=== PATIENT | female | born 1990 | race Caucasian/White ===

== ENCOUNTER 2018-09-30 21:19 | Emergency (ER) | payer MEDICAID ==
[2018-09-30] MEDS ORDERED: Amiodarone 150 MG/3 ML SDV ONE (21:30)
[2018-09-30] MEDS ORDERED: Naloxone 0.4 MG/ML SDV ONE (21:30)
[2018-09-30] MEDS ORDERED: Atropine 0.1 MG/ML 10 ML Syringe ONE (21:30)
[2018-09-30] MEDS ORDERED: EPINEPHrine 1:10,000 1 MG/10 ML Syringe ONE ×2 (21:30)
--- NOTE | 2018-09-30 22:22 | EDM.PDOC ---
ED HPI GENERAL MEDICAL PROBLEM - General Chief Complaint: CPR in Progress Stated Complaint: CPR in progress Time Seen by Provider: 09/30/18 21:19 - History of Present Illness INITIAL COMMENTS - FREE TEXT/NARRATIVE: 28-year-old female found down. Duration is unknown bystander CPR was started her downtime was unknown. She was found down by her kids the kids called her dad who was not at the house drove over started CPR some time after that EMS was activated they arrived there in approximately 20 minutes later arrived here she was intubated here she received doses of epi and bicarbonate and was receiving active CPR the right ear . The circumstances of this event are absolutely unknown the patient has a drug abuse history she received several doses of Narcan before getting here ED ROS GENERAL - Review of Systems Review Of Systems: Unable To Obtain ED EXAM, CPR - Physical Exam Exam: See Below Limited By: Other (CPR in progress) Eye Exam: Bilateral Eye: Other (Nipples fixed dilated equal) Throat/Mouth: Other (Bloody drainage) Head: Atraumatic, Normocephalic Neck: No: Limited Range of Motion Respiratory Chest: Other (Rhonchus breath sounds noted bilaterally) Cardiovascular: CPR In Progress, Other (Faint pulses with compressions) GI/Abdominal Exam: Other (Markedly distended) Extremities: Other (Cool cyanotic) Neurological: Other (No spontaneous activity) Skin Exam: Other (Cool cyanotic in the extremities and over the head neck anterior chest) Course - Orders/Labs/Meds Meds: Medications Discontinued Medications Generic Name Dose Route Start Last Admin Trade Name Kevin PRN Reason Stop Dose Admin Epinephrine HCl Confirm 09/30/18 21:30 Epinephrine 1:10,000 Administered 09/30/18 21:31 Dose 1 mg .ROUTE .STK-MED ONE - Re-Assessments/Exams Free Text/Narrative Re-Assessment/Exam: 10/01/18 01:31 A she appeared to have been down for a while but the time she arrived here EMS successfully placed a functioning ET tube lots of bloody secretions coming from this that required frequent suctioning additional IV started upon arrival she was given 0.4 of Narcan CPR continued brief pauses to check for pulses and rhythm fluid bolus started with suspected PEA the patient received fluid 5 doses of epinephrine. I did discuss the situation with the patient's mother was accepting of the fact that her daughter was gone I offered that I had nothing else to offer she was understanding resuscitative efforts were terminated at 9 Departure - Departure Time of Disposition: 21:40 Disposition: 20 Preliminary Cause of *Q: Cardiac Arrest Clinical Impression: Cardiopulmonary arrest - Discharge Information Referrals: PCP,None [Primary Care Provider] - Forms: ED Department Discharge
== END 2018-09-30 23:44 | disposition expired ==
LOC: JD.ED 21:19 → EDBD 21:19 → JD.ED 23:44
DX: I46.9 Cardiac arrest, cause unspecified (principal)
CPT/HCPCS: 92950; 96374; 99285; J0171; J0282; J0461; J2310; J7120; 99283